=== PATIENT | male | born 1965 | race Caucasian/White ===

== ENCOUNTER 2018-12-18 11:29 | Emergency (ER) | payer MEDICAID ==
[~2018-12-18] VITALS: Ht 167.6 cm; Wt 68.0 kg
[2018-12-18 11:36] VITALS: BP 122/76
[2018-12-18] MEDS ORDERED: MEDROLDOSEPACK PO (12:00)
[2018-12-18] MEDS ORDERED: FLEXERIL PO (12:00)
== END 2018-12-18 12:15 | disposition home or self-care (01) ==
LOC: M.ERS 11:29
DX: M54.5 Low back pain (principal); M54.2 Cervicalgia